=== PATIENT | male | born 1950 | race Hispanic/Latino ===

== ENCOUNTER 2018-12-12 11:12 | Day surgery (SDC) | payer MEDICARE ==
[~2018-12-12 11:12] MED LIST: IOPIDINE ONE; MYDRIACYL ONE; NEOFRIN ONE
[2018-12-12] MEDS ORDERED: NEOFRIN OD ONE (11:38)
[2018-12-12] MEDS ORDERED: MYDRIACYL OD ONE (11:38)
[2018-12-12] MEDS ORDERED: IOPIDINE OD ONE (11:38)
[2018-12-12 14:30] VITALS: BP 126/56
== END 2018-12-12 11:13 | disposition home or self-care (01) ==
LOC: OR 11:12
PROVIDERS: ATTEND Specialist
DX: H26.491 Other secondary cataract, right eye (principal); I25.10 Atherosclerotic heart disease of native coronary artery without angina pectoris; I10 Essential (primary) hypertension; K21.9 Gastro-esophageal reflux disease without esophagitis; M19.90 Unspecified osteoarthritis, unspecified site; Z72.89 Other problems related to lifestyle; Z87.891 Personal history of nicotine dependence; Z88.6 Allergy status to analgesic agent; Z88.5 Allergy status to narcotic agent; Z79.899 Other long term (current) drug therapy; Z98.41 Cataract extraction status, right eye; Z98.42 Cataract extraction status, left eye; Z95.5 Presence of coronary angioplasty implant and graft; Z85.038 Personal history of other malignant neoplasm of large intestine; Z98.890 Other specified postprocedural states; Z86.2 Personal history of diseases of the blood and blood-forming organs and certain disorders involving the immune mechanism